=== PATIENT | female | born 1995 | race Caucasian/White ===

== ENCOUNTER 2022-02-17 05:45 | Emergency (ER) | payer BC ==
[~2022-02-17] VITALS: Ht 162.6 cm; Wt 53.6 kg
[2022-02-17] MEDS ORDERED: IV NORMAL SALINE 1000ML BAG 1,000 ML IV ONE (06:30)
[2022-02-17 07:05] LABS: CALCIUM 8.3 mg/dL (8.5-10.1); CREATININE 0.6 mg/dL (0.6-1.0); GFR 120.8; POTASSIUM 3.8 mmol/L (3.5-5.1)
[2022-02-17 07:06] LABS: BASO % 0 % (0-3); EOS # 0.1 x10^3/uL (0.0-0.7); EOS % 2 % (0-3); HEMATOCRIT 35.5 % (36.0-47.0); HEMOGLOBIN 11.8 g/dL (12.0-15.5); LYMPH # 1.2 x10^3/uL (1.0-4.8); LYMPH % 21 % (24-48); MEAN CORPUSCULAR HEMOGLOBIN 30 pg (25-35); MEAN CORPUSCULAR HGB CONC 33 g/dL (31-37); MEAN CORPUSCULAR VOLUME 89 fL (79-100); MONO # 0.5 x10^3/uL (0.0-1.1); MONO % 8 % (0-9); NEUT # 3.7 x10^3/uL (1.8-7.7); NEUT % 68 % (31-73); PLATELET COUNT 215 x10^3/uL (140-400); RED CELL DISTRIBUTION WIDTH 13.1 % (11.5-14.5); WHITE BLOOD COUNT 5.4 x10^3/uL (4.0-11.0)
[2022-02-17 07:11] LABS: ALBUMIN/GLOBULIN RATIO 0.8 (1.0-1.7); TOTAL BILIRUBIN 0.3 mg/dL (0.2-1.0); TOTAL PROTEIN 6.6 g/dL (6.4-8.2)
[2022-02-17 07:14] LABS: BACTERIA,URINE MODERATE /HPF (0-FEW); RBC,URINE 0 /HPF (0-2)
[2022-02-17] MEDS ORDERED: MAG HYDROX/ALUMINUM HYD/SIMETH 30 ML ORAL.SUSP PO ONE (07:30)
[2022-02-17] MEDS ORDERED: ONDANSETRON ODT 4 MG TAB.RAPDIS. PO ONE (07:30)
[2022-02-17] MEDS ORDERED: ACETAMINOPHEN 500 MG TABLET PO ONE (07:30)
[2022-02-17] MEDS ORDERED: CEPH500C PO (08:21)
[2022-02-17] MEDS ORDERED: ONDA4TAB12 PO (08:21)
--- NOTE | 2022-02-17 08:25 | RAD ---
EXAM: Obstetrics sonogram; abdomen sonogram. HISTORY: Pain. TECHNIQUE: Transabdominal and transvaginal sonographic imaging of the pelvis and sonographic imaging of the abdomen was performed. COMPARISON: None. FINDINGS: The uterus measures 9.7 x 5.8 x 5.5 cm. There is a single intrauterine gestational sac with yolk sac. The mean sac diameter is 6 mm, corresponding with a gestational age of 5 weeks and 2 days. No pole is seen at this early gestation. There is a tiny hypoechoic region adjacent to the ges tational sac measuring 3 mm. This may be a tiny subchorionic hematoma. The ovaries are normal in size and demonstrate normal blood flow. There is a 1.4 cm complicated right ovarian cyst likely containing internal debris. There is a suspected 1.8 cm left corpus luteum cyst. There are prominent bilateral adnexal vessels suggesting a component of pelvic congestion. There is trace free fluid within the cul-de-sac. The liver is normal in size. No focal hepatic lesion is seen. The gallbladder is unremarkable. The co mmon bile duct is normal in caliber. The pancreas, spleen, aorta and inferior vena cava are unremarka ble. The kidneys are slightly echogenic. This is not clearly within limits to suggest medical renal d isease. IMPRESSION: 1. Single intrauterine gestational sac with yolk sac. The mean sac diameter corresponds with a gestat ional age of 5 weeks and 2 days. No pole is seen at this early gestational age. Correlation wit h serial beta-hCG levels and sonographic follow-up in one to 2 weeks can be performed to assess viabi lity. 2. 1.4 cm complicated right ovarian cyst and suspected 1.8 cm left corpus luteum cyst. 3. Findings suggesting a component of pelvic congestion. 4. Trace pelvic free fluid. 5. Possible tiny subchorionic hematoma along the gestational sac measuring 3 mm. Electronically signed by: Linsey Hicks MD (02/17/2022 8:23 AM) [id number]
[2022-02-17 09:05] VITALS: BP 96/55
--- NOTE | 2022-02-17 09:08 | PHYS DOC ---
Past Medical History Additional Past Medical Histor: OVARIAN CYST Past Surgical History: Other Additional Past Surgical Histo: LAPAROSCOPY Smoking Status: Never Smoker Alcohol Use: None General Adult EDM: Chief Complaint: ABDOMINAL PAIN IN HPI: HPI: Patient is a 26 year old female who presents with epigastric pain, right back pain for 1 day. Patient states that she is about 5 weeks . She has not had an ultrasound yet. She states that she feels well, other than epigastric tenderness and right back pain that is exacerbated by food. Patient has not tried any medication. Patient states that the pain is mild. She has had no vaginal bleeding. Review of Systems: Review of Systems: Constitutional: Denies fever or chills. [] Eyes: Denies change in visual acuity. [] HENT: Denies nasal congestion or sore throat. [] Respiratory: Denies cough or shortness of breath. [] Cardiovascular: Denies chest pain or edema. [] GI: Positive epigastric abdominal pain, positive nausea, no vomiting, bloody stools or diarrhea. [] : Denies dysuria. [] Musculoskeletal: Denies back pain or joint pain. [] Integument: Denies rash. [] Neurologic: Denies headache, focal weakness or sensory changes. [] Endocrine: Denies polyuria or polydipsia. [] Lymphatic: Denies swollen glands. [] Psychiatric: Denies depression or anxiety. [] Heart Score: C/O Chest Pain: No Risk Factors: Risk Factors: DM, Current or recent (<one month) smoker, HTN, HLP, family history of CAD, obesity. Risk Scores: Score 0 - 3: 2.5% MACE over next 6 weeks - Discharge Home Score 4 - 6: 20.3% MACE over next 6 weeks - Admit for Clinical Observation Score 7 - 10: 72.7% MACE over next 6 weeks - Early Invasive Strategies Current Medications: Current Medications Medications (Trade) Dose Ordered Sig/Mikki Start Time Stop Time Status Last Admin Dose Admin Acetaminophen (Tylenol) 1,000 mg 1X ONCE 02/17/22 07:30 02/17/22 07:31 DC 02/17/22 07:57 1,000 MG Al Hydroxide/Mg Hydroxide (Mylanta Plus Xs) 30 ml 1X ONCE 02/17/22 07:30 02/17/22 07:31 DC 02/17/22 07:57 30 ML Ondansetron HCl (Zofran Odt) 4 mg 1X ONCE 02/17/22 07:30 02/17/22 07:31 DC 02/17/22 07:28 4 MG Sodium Chloride 1,000 ml @ 1,000 mls/hr 1X ONCE 02/17/22 06:30 02/17/22 07:29 DC 02/17/22 06:40 1,000 MLS/HR Allergies: Allergies: Allergies Coded Allergies Type Severity Reaction Last Updated Verified No Known Drug Allergies 02/17/22 No Physical Exam: PE: Constitutional: Well developed, well nourished, no acute distress, non-toxic appearance. [] HENT: Normocephalic, atraumatic, bilateral external ears normal, oropharynx moist, no oral exudates, nose normal. [] Eyes: PERRLA, EOMI, conjunctiva normal, no discharge. [] Neck: Normal range of motion, no tenderness, supple, no stridor. [] Cardiovascular:Heart rate regular rhythm, no murmur [] Lungs & Thorax: Bilateral breath sounds clear to auscultation [] Abdomen: Bowel sounds normal, soft, minimal epigastric and right flank tenderness, no masses, no pulsatile masses. [] Skin: Warm, dry, no erythema, no rash. [] Back: No tenderness, possible right-sided CVA tenderness. [] Extremities: No tenderness, no cyanosis, no clubbing, ROM intact, no edema. [] Neurologic: Alert and oriented X 3, normal motor function, normal sensory function, no focal deficits noted. [] Psychologic: Affect normal, judgement normal, mood normal. [] Current Patient Data: Labs: Laboratory Tests Test 02/17/22 05:53 02/17/22 05:56 02/17/22 06:38 Urine Collection Type Unknown Urine Color (Auto) Yellow Urine Turbidity Clear Urine pH (Auto) 6.0 (<5.0-8.0) Urine Specific [place] 1.030 (1.000-1.030) Urine Protein (Auto) Negative mg/dL (Negative) Urine Glucose (Auto)(UA) Negative mg/dL (Negative) Urine Ketones (Auto) Negative mg/dL (Negative) Urine Blood (Auto) Negative (Negative) Urine Nitrite Negative (Negative) Urine Bilirubin (Auto) Negative (Negative) Urine Urobilinogen (Auto) 2 mg/dL (Normal) Urine Leukocyte Esterase (Auto) Negative (Negative) Urine RBC 0 /HPF (0-2) Urine WBC 1-4 /HPF (0-4) Urine Squamous Epithelial Cells Few /LPF Urine Bacteria Moderate /HPF (0-FEW) Urine Mucus Slight /LPF POC Urine HCG, Qualitative Hcg positive (Negative) White Blood Count 5.4 x10^3/uL (4.0-11.0) Red Blood Count 4.00 x10^6/uL (3.50-5.40) Hemoglobin 11.8 g/dL (12.0-15.5) L Hematocrit 35.5 % (36.0-47.0) L Mean Corpuscular Volume 89 fL (79-100) Mean Corpuscular Hemoglobin 30 pg (25-35) Mean Corpuscular Hemoglobin Concent 33 g/dL (31-37) Red Cell Distribution Width 13.1 % (11.5-14.5) Platelet Count 215 x10^3/uL (140-400) Neutrophils (%) (Auto) 68 % (31-73) Lymphocytes (%) (Auto) 21 % (24-48) L Monocytes (%) (Auto) 8 % (0-9) Eosinophils (%) (Auto) 2 % (0-3) Basophils (%) (Auto) 0 % (0-3) Neutrophils # (Auto) 3.7 x10^3/uL (1.8-7.7) Lymphocytes # (Auto) 1.2 x10^3/uL (1.0-4.8) Monocytes # (Auto) 0.5 x10^3/uL (0.0-1.1) Eosinophils # (Auto) 0.1 x10^3/uL (0.0-0.7) Basophils # (Auto) 0.0 x10^3/uL (0.0-0.2) Sodium Level 140 mmol/L (136-145) Potassium Level 3.8 mmol/L (3.5-5.1) Chloride Level 106 mmol/L (98-107) Carbon Dioxide Level 27 mmol/L (21-32) Anion Gap 7 (6-14) Blood Urea Nitrogen 11 mg/dL (7-20) Creatinine 0.6 mg/dL (0.6-1.0) Estimated GFR (Cockcroft-Gault) 120.8 BUN/Creatinine Ratio 18 (6-20) Glucose Level 90 mg/dL (70-99) Calcium Level 8.3 mg/dL (8.5-10.1) L Total Bilirubin 0.3 mg/dL (0.2-1.0) Aspartate Amino Transferase (AST) 12 U/L (15-37) L Alanine Aminotransferase (ALT) 14 U/L (14-59) Alkaline Phosphatase 59 U/L (46-116) Total Protein 6.6 g/dL (6.4-8.2) Albumin 3.0 g/dL (3.4-5.0) L Albumin/Globulin Ratio 0.8 (1.0-1.7) L Laboratory Tests 02/17/22 06:38 Laboratory Tests 02/17/22 06:38 Vital Signs: Vital Signs Date Time Temp Pulse Resp B/P (MAP) Pulse Ox O2 Delivery O2 Flow Rate FiO2 02/17/22 07:29 77 16 96/53 (67) 100 Room Air 02/17/22 05:55 97.8 97.8 EKG: EKG: [] Radiology/Procedures: Radiology/Procedures: US: IUP seen, no cholelithiasis[] EXAM: Obstetrics sonogram; abdomen sonogram. HISTORY: Pain. TECHNIQUE: Transabdominal and transvaginal sonographic imaging of the pelvis and sonographic imaging of the abdomen was performed. COMPARISON: None. FINDINGS: The uterus measures 9.7 x 5.8 x 5.5 cm. There is a single intrauterine gestational sac with yolk sac. The mean sac diameter is 6 mm, corresponding with a gestational age of 5 weeks and 2 days. No pole is seen at this early gestation. There is a tiny hypoechoic region adjacent to the gestational sac measuring 3 mm. This may be a tiny subchorionic hematoma. The ovaries are normal in size and demonstrate normal blood flow. There is a 1.4 cm complicated right ovarian cyst likely containing internal debris. There is a suspected 1.8 cm left corpus luteum cyst. There are prominent bilateral adnexal vessels suggesting a component of pelvic congestion. There is trace free fluid within the cul-de-sac. The liver is normal in size. No focal hepatic lesion is seen. The gallbladder is unremarkable. The common bile duct is normal in caliber. The pancreas, spleen, aorta and inferior vena cava are unremarkable. The kidneys are slightly echogenic. This is not clearly within limits to suggest medical renal disease. IMPRESSION: 1. Single intrauterine gestational sac with yolk sac. The mean sac diameter corresponds with a gestational age of 5 weeks and 2 days. No pole is seen at this early gestational age. Correlation with serial beta-hCG levels and sonographic follow-up in one to 2 weeks can be performed to assess viability. 2. 1.4 cm complicated right ovarian cyst and suspected 1.8 cm left corpus luteum cyst. 3. Findings suggesting a component of pelvic congestion. 4. Trace pelvic free fluid. 5. Possible tiny subchorionic hematoma along the gestational sac measuring 3 mm. Electronically signed by: Linsey Hicks MD (02/17/2022 8:23 AM) [id number] Impression: Gastritis, Acute cystitis Course & Med Decision Making: Course & Med Decision Making Pertinent Labs and Imaging studies reviewed. (See chart for details) 26-year-old female 5 weeks intrauterine , presents with epigastric and right flank pain. Patient feels well otherwise. Pain is exacerbated by food. Reviewed findings with patient. Patient will follow-up with [facility] next week. Possible subchorionic hemorrhage seen on ultrasound however patient is 5 weeks. Patient will follow up with [facility] for repeat ultrasound as well as hCG testing. Patient hemodynamically stable at time of discharge. All questions answered. Vinny Disclaimer: Vinny Disclaimer: This electronic medical record was generated, in whole or in part, using a voice recognition dictation system. Departure Departure Impression: Primary Impression: Acute cystitis Additional Impression: Gastritis Disposition: 01 HOME / SELF CARE / HOMELESS Condition: GOOD Patient Instructions: Urinary Tract Infection, [id number] Additional Instructions: Follow up with your OB in 1 week You should take all of your antibiotics for your UTI. You may take Zofran for nausea You can purchase famotidine or Pepcid from the pharmacy [id number] for gastritis Scripts Ondansetron (ONDANSETRON ODT) 4 Mg Tab.rapdis 0.5 TAB PO PRN Q6-8HRS PRN for NAUSEA, #8 TAB Prov: ELGIN TYLER MD 02/17/22 Cephalexin (KEFLEX) 500 Mg Capsule 1 CAP PO TID for 5 Days, #15 CAP Prov: ELGIN TYLER MD 02/17/22 ELGIN TYLER MD February 17, 2022 09:08
== END 2022-02-17 09:05 | disposition home or self-care (01) ==
LOC: ER 05:45
DX: O23.11 Infections of bladder in pregnancy, first trimester (principal); K29.70 Gastritis, unspecified, without bleeding; N83.12 Corpus luteum cyst of left ovary; Z3A.01 Less than 8 weeks gestation of pregnancy
CPT/HCPCS: 36415; 76700; 76801; 76817; 80053; 81001; 81025; 84702; 85025; 86900; 86901; 87086; 96360; 99284; J7030